=== PATIENT | female | born 1965 | race African-American/Black ===

== ENCOUNTER 2020-01-17 02:34 | Emergency (ER) | payer OTHER | END 2020-01-17 03:09 | disposition home or self-care (01) | LOC: NAV ERS 02:34 | DX: I10 Essential (primary) hypertension (principal); E10.9 Type 1 diabetes mellitus without complications; F32.9 Major depressive disorder, single episode, unspecified; E78.5 Hyperlipidemia, unspecified; Z79.899 Other long term (current) drug therapy | CPT/HCPCS: 99283 ==